=== PATIENT | female | born 1990 | race Caucasian/White ===

== ENCOUNTER → 2020-02-23 | Outpatient (CLI) | payer OTHER ==
--- NOTE | 2020-02-23 16:37 | RADIOLOGY REPORT (SQ) ---
EXAM DESCRIPTION: U/S NON-OB PELVIS TV W/O DOP IMAGES COMPLETED DATE/TIME: 02/23/2020 4:19 pm REASON FOR STUDY: N91.2 AMENORRHEA, UNSPECIFIED N91.2 AMENORRHEA, UNSPECIFIED COMPARISON: None. TECHNIQUE: Dynamic and static grayscale images acquired of the pelvis via transvaginal approach and recorded on PACS. Additional selected color Doppler and spectral images recorded. LIMITATIONS: None. FINDINGS: UTERUS: The uterus is retroverted. Contour normal. No mass. ENDOMETRIAL STRIPE: No focal or generalized thickening. No masses. CERVIX: No nabothian cysts. RIGHT OVARY AND DOPPLER: Normal size. Multiple ovarian follicles in the periphery of the ovary. Nor mal arterial vascular flow without evidence for torsion. LEFT OVARY AND DOPPLER: Normal size. Multiple follicles in the periphery of the ovary. No worrisome masses. Normal arterial vascular flow without evidence for torsion. FREE FLUID: None noted. OTHER: Increased peristaltic activity in the region of the right adnexum. MEASUREMENTS: UTERUS: 7.044.3 x 4.1 cm ENDOMETRIAL STRIPE: 7 mm RIGHT OVARY: 4.6 x 3.5 x 2.8 cm LEFT OVARY: 3.7 x 3.1 x 2.5 cm IMPRESSION: 1. Multiple follicles are noted in the periphery of the ovaries. These findings raise the question of polycystic ovarian syndrome. 2. The uterus is retroverted. TECHNICAL DOCUMENTATION: JOB ID: [id number] [employer]- All Rights Reserved Rev-01/14 Reading location - IP/workstation name: [email or web address]
== END ==
LOC: RAD 15:45
PROVIDERS: ATTEND Nurse Practitioner Family
DX: N91.2 Amenorrhea, unspecified (principal); N85.4 Malposition of uterus
CPT/HCPCS: 76830